=== PATIENT | male | born 1970 | race African-American/Black ===

== ENCOUNTER 2020-07-27 09:46 | Emergency (ER) | payer OTHER, SELFPAY ==
--- NOTE | ~2020-07-27 | XR_ITS ---
XR ankle RT min 3V 07/27/2020 11:30 INDICATION: Right ankle pain after twisting injury PROCEDURE: 4 views right ankle COMPARISON: No prior studies for comparison. FINDINGS: Fracture, dislocation or subluxation is not identified. Ankle mortise intact. The soft tiss ues appear within normal limits. No foreign bodies are identified. IMPRESSION: 1: NO ACUTE BONE OR JOINT ABNORMALITY IDENTIFIED. Reviewed, dictated and finalized at location A.
[2020-07-27 10:31] VITALS: BP 149/86; PULSE 72; RESP 16; TEMP 36.2; O2SAT 97
--- NOTE | 2020-07-27 11:03 | ED.GENADULT ---
HPI - General Adult General Chief complaint: Extremity Injury, Lower Stated complaint: Right ankle Pain Time Seen by Provider: 07/27/20 11:03 Source: patient and RN notes reviewed Mode of arrival: ambulatory Limitations: no limitations History of Present Illness HPI narrative: 49-year-old -[place] male presents with complains of tenderness to right ankle for 1 day. Bari reports twisting right ankle on 07/27/2019 at approximately 19:40 with increasing pain throughout the night. Ibuprofen 400 mg last 07:00 AM without relief. No radiating pain. No numbness or tingling or loss of mobility. Denies inability to bear weight. Exacerbation factor consist of movement and bearing weight. No relieving factors. Denies discoloration. Denies altered sensation and suspected foreign body. Denies fever. Remains active. The patient reports he have not been diagnosed with COVID-19. The patient reports he received COVID-19 vaccine June 2020. The patient reports he is not waiting for the results of a COVID-19 lab test. The patient reports he do not have chills, weakness, or fatigue. The patient reports he do not have a new or worsening cough or shortness of breath. Denies chest pain. The patient reports he do not have any rhinorrhea, congestion, loss of taste or smell, sore throat, nausea, vomiting, abdominal pain, and diarrhea. Tolerating po intake well. Denies recent traveling. Denies concerns for COVID-19 or exposures been home with limited outdoor exposure except for essential household needs, work, and return home. At this time, patient is not suspected of having COVID-19. Some parts of this dictation were generated by voice recognition software and may contain typographical and/or grammatical inaccuracies. Related Data Home Medications Medication Instructions Recorded Confirmed atorvastatin 04/09/19 cyclobenzaprine mg 04/09/19 insulin aspart U-100 [Novolog 100 unit SUBCUT DAILY 04/09/19 07/27/20 Flexpen U-100 Insulin] insulin syringe-needle U-100 [BD 04/09/19 04/09/19 Insulin Syringe Ultra-Fine] losartan 100 mg PO DAILY 04/09/19 07/27/20 tramadol mg 04/09/19 tadalafil 20 mg PO PRN 07/27/20 07/27/20 Allergies Allergy/AdvReac Type Severity Reaction Status Date / Time No Known Allergies Allergy Verified 04/09/19 10:54 Review of Systems Review of Systems: Narrative: CONSTITUTIONAL: Denies fever, chills, sweats. EYES: Denies visual changes, redness, discharge. ENT: Denies rhinorrhea, congestion, sore throat, otalgia. CARDIOVASCULAR: Denies chest pain, palpitations, edema. RESPIRATORY: Denies dyspnea, wheezing, cough. GASTROINTESTINAL: Denies abdominal pain, nausea, vomiting, diarrhea. SKIN: Denies rash or itching. MUSCULOSKELETAL: Denies acute back pain or myalgia. Complains of RT ankle pain. NEUROLOGIC: Denies numbness or focal weakness. PSYCHIATRIC: Denies anxiety or depression. All other systems reviewed & are unremarkable except as noted in HPI and below. [facility] Past Medical History Medical History (Updated 07/30/20 @ 23:36 by BETZY Griffiths) Chronic back pain Diabetes Hypercholesteremia Hypertension Surgical History Surgical History (Updated 07/27/20 @ 11:16 by BETZY Griffiths) No significant past surgical history Family History Family History (Updated 07/27/20 @ 11:17 by BETZY Griffiths) Father Heart disease Mother Heart disease Social History Social History (Updated 07/27/20 @ 11:18 by BETZY Griffiths) Smoking status: Current every day smoker Tobacco type: e-cigarettes/vaping Second hand tobacco smoke exposure: No Alcohol intake: former Alcohol use details: Quit 2 to 3 years ago Substance use: current Substance use type: marijuana Living arrangements: with family Occupation/Education: occupation Gender identity (if verbalized by the patient): Male Comments At time of signature, agree with nu
[2020-07-27] MEDS: KETOROLAC (*BKC) 60 MG/2 ML VIAL IM (11:16)
== END 2020-07-27 11:46 | disposition home or self-care (01) ==
PROVIDERS: Emergency Provider Nurse Practitioner Family
DX: S93.401A Sprain of unspecified ligament of right ankle, initial encounter (principal); X50.9XXA Other and unspecified overexertion or strenuous movements or postures, initial encounter; F17.200 Nicotine dependence, unspecified, uncomplicated; E11.9 Type 2 diabetes mellitus without complications; E78.00 Pure hypercholesterolemia, unspecified; I10 Essential (primary) hypertension
CPT/HCPCS: 73610; 96372; 99213; G0463; J1885

== ENCOUNTER 2020-09-28 15:36 | Emergency (ER) | payer OTHER, SELFPAY ==
[2020-09-28 15:42] VITALS: BP 130/85; PULSE 98; RESP 16; TEMP 36.3; O2SAT 99
--- NOTE | 2020-09-28 15:53 | ED.BACK ---
HPI - Back Pain/Injury General Chief Complaint: Back Pain/Injury Stated Complaint: neck/back pain Time Seen by Provider: 09/28/20 15:58 Source: patient Mode of arrival: ambulatory Limitations: no limitations History of Present Illness HPI Narrative: Bari Liu is a 49 yo male with a OMH of high cholesterol, HTN, diabetes, who comes to urgent care with complaints of neck tightness on the left and lower lumbar pain which radiates down his left buttocks. He mops and picks up at work and is having pain to the point is very difficult for him to move through full range of motion Patient has not seen his doctor [id number] since before the pandemic and will need to have his cholesterol checked; his blood sugar is running in the 180s Related Data Home Medications Medication Instructions Recorded Confirmed insulin aspart U-100 [Novolog 20 unit SUBCUT DAILY 04/09/19 09/28/20 Flexpen U-100 Insulin] insulin syringe-needle U-100 [BD 04/09/19 04/09/19 Insulin Syringe Ultra-Fine] losartan 50 mg PO DAILY 04/09/19 09/28/20 insulin glargine [Lantus Solostar 40 unit SUBCUT DAILY 09/28/20 09/28/20 U-100 Insulin] Allergies Allergy/AdvReac Type Severity Reaction Status Date / Time No Known Allergies Allergy Verified 09/28/20 15:56 Review of Systems Review of Systems: Narrative: CONSTITUTIONAL: Denies fever, chills, sweats. EYES: Denies visual changes, redness, discharge. ENT: Denies rhinorrhea, congestion, sore throat, otalgia. CARDIOVASCULAR: Denies chest pain, palpitations, edema. RESPIRATORY: Denies dyspnea, wheezing, cough GASTROINTESTINAL: Denies abdominal pain, nausea, vomiting, diarrhea. GENITOURINARY: Denies dysuria, hematuria, abnormal discharge SKIN: Denies rash or itching. NEUROLOGIC: Denies numbness, or focal weakness. PSYCHIATRIC: Denies anxiety or depression. Stiffness to the left side of neck and lumbar pain that radiates into the left buttock PMFSH Past Medical History Medical History Chronic back pain Diabetes Hypercholesteremia Hypertension Surgical History Surgical History No significant past surgical history Family History Family History Father Heart disease Mother Heart disease Social History Social History Smoking status: Current every day smoker Tobacco type: e-cigarettes/vaping Second hand tobacco smoke exposure: No Alcohol intake: former Substance use: current Substance use type: marijuana Gender identity (if verbalized by the patient): Male Comments At time of signature, I agree with nursing past medical, surgical, social and family history. There is no relevant family history pertinent to the presenting complaint. Exam Narrative: Exam Narrative: GENERAL: This is a well-nourished, well-developed patient, in moderate distress. HEAD: normocephalic, atraumatic. EYES:Sclera clear/white. Vision is grossly intact. EARS: External ears normal. Hearing grossly intact. NOSE: External nose normal without nasal discharge, nares without redness, no rhinorrhea. THROAT: Mucous membranes moist, NECK: Neck supple, tender with movement up or down and to the right more than the left, tightness felt at base of left neck across trapezius CARDIOVASCULAR: Regular rate and rhythm without murmurs, gallops, or rubs. RESPIRATORY: Clear to auscultation. Breath sounds equal bilaterally. No wheezes, rales, or rhonchi. GASTROINTESTINAL: Abdomen soft, non-tender, SKIN: warm, intact with no suspicious lesions or rash, good texture and turgor. NEURO: awake, alert, and oriented to person, place and time. There were no obvious focal neurologic abnormalities. Steady gait EXTREMITIES: Normal range of motion. Is able to stand on each foot and bend over with d
== END 2020-09-28 16:24 | disposition home or self-care (01) ==
PROVIDERS: Emergency Provider Nurse Practitioner
DX: M54.2 Cervicalgia (principal); M54.32 Sciatica, left side; E78.00 Pure hypercholesterolemia, unspecified; I10 Essential (primary) hypertension; E11.9 Type 2 diabetes mellitus without complications; F17.200 Nicotine dependence, unspecified, uncomplicated
CPT/HCPCS: 99213; G0463

== ENCOUNTER 2020-11-16 09:08 | Emergency (ER) | payer OTHER, SELFPAY ==
[2020-11-16 09:16] VITALS: BP 149/90; PULSE 90; RESP 16; TEMP 36.1; O2SAT 99
--- NOTE | 2020-11-16 09:33 | ED.HA ---
HPI - Headache General Chief Complaint: Headache Stated Complaint: Headache,Shoulder Pain Time Seen by Provider: 11/16/20 09:30 Source: patient Mode of arrival: ambulatory Limitations: no limitations History of Present Illness HPI Narrative: Bari Liu is a 50 yo male with a PMH hypertension, diabetes, high cholesterol, [facility] with complaints of a headache on the right side of his head and shoulder pain and numbness since last night. He has been taking his blood pressure medication on and off and does not have a monitor his blood pressure. His diabetes is fairly well controlled and his blood sugar last night was 158; he has medications for all of the above Related Data Home Medications Medication Instructions Recorded Confirmed insulin aspart U-100 [Novolog 20 unit SUBCUT DAILY 04/09/19 11/16/20 Flexpen U-100 Insulin] insulin syringe-needle U-100 [BD 04/09/19 04/09/19 Insulin Syringe Ultra-Fine] losartan 50 mg PO DAILY 04/09/19 09/28/20 insulin glargine [Lantus Solostar 40 unit SUBCUT DAILY 09/28/20 09/28/20 U-100 Insulin] atorvastatin 40 mg PO DAILY 11/16/20 11/16/20 nicotine 1 patch TRANSDERMAL DAILY 11/16/20 11/16/20 tadalafil 5 mg PO DAILY PRN 11/16/20 11/16/20 Allergies Allergy/AdvReac Type Severity Reaction Status Date / Time No Known Allergies Allergy Verified 11/16/20 09:23 Review of Systems Review of Systems: Narrative: CONSTITUTIONAL: Denies fever, chills, sweats. EYES: Denies visual changes, redness, discharge. ENT: Denies rhinorrhea, congestion, sore throat, otalgia. CARDIOVASCULAR: Denies chest pain, palpitations, edema. RESPIRATORY: Denies dyspnea, wheezing, cough GASTROINTESTINAL: Denies abdominal pain, nausea, vomiting, diarrhea. GENITOURINARY: Denies dysuria, hematuria, abnormal discharge SKIN: Denies rash or itching. NEUROLOGIC: Denies numbness, or focal weakness. Complaining of headache and numbness of right arm PSYCHIATRIC: Denies anxiety or depression. [facility] Past Medical History Medical History Chronic back pain Diabetes Hypercholesteremia Hypertension Surgical History Surgical History No significant past surgical history Family History Family History Father Heart disease Mother Heart disease Social History Social History Smoking status: Current every day smoker Tobacco type: e-cigarettes/vaping Second hand tobacco smoke exposure: No Alcohol intake: former Alcohol use details: Quit 2 to 3 years ago Substance use: current Substance use type: marijuana Gender identity (if verbalized by the patient): Male Comments At time of signature, I agree with nursing past medical, surgical, social and family history. There is no relevant family history pertinent to the presenting complaint. Exam Narrative: Exam Narrative: GENERAL: This is a well-nourished, well-developed patient, in moderate distress. HEAD: normocephalic, atraumatic. EYES: PERRL. Sclera clear/white. Vision is grossly intact. EARS: External ears normal, auditory canals clear and without drainage, TMs normal without perforation. Hearing grossly intact. NOSE: External nose normal without nasal discharge, nares without redness, no rhinorrhea. THROAT: Mucous membranes moist, posterior pharynx erythema NECK: Neck supple, mild-tender on R CARDIOVASCULAR: Regular rate and rhythm without murmurs, gallops, or rubs. RESPIRATORY: Clear to auscultation. Breath sounds equal bilaterally. No wheezes, rales, or rhonchi. GASTROINTESTINAL: Abdomen soft, SKIN: warm, intact with no suspicious lesions or rash, good texture and turgor. NEURO: awake, alert, and oriented to person, place and time. There were no obvious focal neurologic abnormalities. John
--- NOTE | 2020-11-16 09:55 | ECG_ITS ---
Measurements Intervals [place] Rate: 81 P: 61 WI: 137 QRS: 11 QRSD: 81 T: 18 QT: 346 QTc: 402 Interpretive Statements SINUS RHYTHM BASELINE ARTIFACT- I, III, AVR, AVL, AVF NORMAL ECG Electronically Signed On 11-16-2020 12:00:07 CDT by Jori Valentin D.O.
[2020-11-16] MEDS: KETOROLAC (*BKC) 60 MG/2 ML VIAL IM (10:00)
[2020-11-16] MEDS: cloNIDine HCL 0.1 MG TABLET PO (10:15)
[2020-11-16 10:18] VITALS: BP 142/92; PULSE 52
== END 2020-11-16 10:18 | disposition home or self-care (01) ==
PROVIDERS: Emergency Provider Nurse Practitioner
DX: M79.601 Pain in right arm (principal); F17.200 Nicotine dependence, unspecified, uncomplicated; E11.9 Type 2 diabetes mellitus without complications; E78.00 Pure hypercholesterolemia, unspecified; I10 Essential (primary) hypertension
CPT/HCPCS: 93005; 96372; 99213; A9270; G0463; J1885

== ENCOUNTER 2021-01-04 08:26 | Emergency (ER) | payer OTHER, SELFPAY ==
[2021-01-04 08:35] VITALS: BP 154/99; PULSE 84; RESP 16; TEMP 36.6; O2SAT 99
[2021-01-04 08:37] VITALS: BP 154/99; PULSE 84; RESP 16; TEMP 36.6; O2SAT 99
[2021-01-04] MEDS: cloNIDine HCL 0.1 MG TABLET PO (08:51)
--- NOTE | 2021-01-04 08:57 | ED.LOWEXIN ---
HPI - Extremity Injury (Lower) General Chief Complaint: Extremity Injury, Lower Stated Complaint: left foot/thigh Source: patient and RN notes reviewed Mode of arrival: ambulatory History of Present Illness HPI Narrative: This is a 50-year-old male who presented to urgent care with complaints of left ankle and thigh pain status post fall. According to patient he was walking down the stairs at his apartment building and slipped on a child's toy and landed on his left side injuring his left thigh and ankle. Patient notes that he is able to move affected extremity with slight discomfort. 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 Patient noted that he took ibuprofen at home for his pain he also has other pain medications for his chronic back pain. He does not feel that he fractured his foot and has declined imaging of the affected extremity. The patient denies SOB, CP, palpitation, extremity numbness, lightheadedness, dizziness, constipation, diarrhea, chills, or fever. MD complaint: thigh injury (Left), ankle injury (Left) and fall Related Data Home Medications Medication Instructions Recorded Confirmed insulin aspart U-100 [Novolog 20 unit SUBCUT DAILY 04/09/19 11/16/20 Flexpen U-100 Insulin] insulin syringe-needle U-100 [BD 04/09/19 04/09/19 Insulin Syringe Ultra-Fine] losartan 50 mg PO DAILY 04/09/19 01/04/21 insulin glargine [Lantus Solostar 40 unit SUBCUT DAILY 09/28/20 09/28/20 U-100 Insulin] Allergies Allergy/AdvReac Type Severity Reaction Status Date / Time No Known Allergies Allergy Verified 11/16/20 09:23 Review of Systems Review of Systems: A 14 organ system Review of Systems was performed and pertinent positives included in the HPI, otherwise remaining ROS is negative. [facility] Past Medical History Medical History Chronic back pain Diabetes Hypercholesteremia Hypertension Surgical History Surgical History No significant past surgical history Family History Family History Father Heart disease Mother Heart disease Social History Social History Smoking status: Current every day smoker Tobacco type: e-cigarettes/vaping Second hand tobacco smoke exposure: No Alcohol intake: former Alcohol use details: Quit 2 to 3 years ago Substance use: current Substance use type: marijuana Gender identity (if verbalized by the patient): Male Exam Narrative: GENERAL: This is a well-nourished, well-developed patient, in no apparent distress. HEAD: normocephalic, atraumatic. EYES: PERRL. Sclera clear/white. Vision is grossly intact. EARS: External ears normal, auditory canals clear and without drainage, TMs normal without perforation. Hearing grossly intact. NOSE: External nose normal with no obvious nasal discharge, nares without redness, no rhinorrhea. THROAT: Mucous membranes moist, posterior pharynx clear. NECK: Neck supple, non-tender without lymphadenopathy, masses or thyromegaly. CARDIOVASCULAR: Regular rate and rhythm without murmurs, gallops, or rubs. RESPIRATORY: Clear to auscultation. Breath sounds equal bilaterally. No wheezes, rales, or rhonchi. GASTROINTESTINAL: Abdomen soft, non-tender, nondistended. Bowel sounds are active. No hepato-splenomegaly, or palpable masses. No guarding. SKIN: warm, intact with no suspicious lesions or rash, good texture and turgor. NEURO: awake, alert, and oriented to person, place and time. There were no obvious focal neurologic abnormalities. Steady gait EXTREMITIES: Normal range of motion, tenderness to left ankle no edema No calf tenderness. Negative Homans sign bilaterally. No neurovascular deficiency noted pulses are palpable. Capi
== END 2021-01-04 09:03 | disposition home or self-care (01) ==
PROVIDERS: Emergency Provider Nurse Practitioner
DX: S93.402A Sprain of unspecified ligament of left ankle, initial encounter (principal); W10.9XXA Fall (on) (from) unspecified stairs and steps, initial encounter; F17.210 Nicotine dependence, cigarettes, uncomplicated; E11.9 Type 2 diabetes mellitus without complications; E78.00 Pure hypercholesterolemia, unspecified; I10 Essential (primary) hypertension; Z79.4 Long term (current) use of insulin
CPT/HCPCS: 99213; A9270; G0463

== ENCOUNTER 2023-10-09 20:16 | Emergency (ER) | payer OTHER, SELFPAY ==
--- NOTE | ~2023-10-09 | XR_ITS ---
XR hand RT min 3V Ordering provider: Justine Cunha MD History: . injury TO DORSAL MID HAND . Comparison: None. FINDINGS: BONES: Fracture at the base of the distal phalanx of the right thumb anteriorly. No other fractures. JOINT SPACES: Normal. SOFT TISSUES: Normal. IMPRESSION: Fracture at the base of the distal phalanx of the right thumb anteriorly. Clinical correlation advise d. Reviewed, dictated and finalized at location A. IMPRESSION: Fracture at the base of the distal phalanx of the right thumb anteriorly. Clini cain correlation advised.
[2023-10-09 20:18] VITALS: BP 217/104; PULSE 113; RESP 18; TEMP 36.2; O2SAT 99
[2023-10-09 21:26] VITALS: BP 169/83; PULSE 88; RESP 15; O2SAT 99
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
== END 2023-10-09 21:55 | disposition home or self-care (01) ==
PROVIDERS: Emergency Provider Physician Assistant
DX: S60.221A Contusion of right hand, initial encounter (principal); E11.9 Type 2 diabetes mellitus without complications; E78.00 Pure hypercholesterolemia, unspecified; I10 Essential (primary) hypertension; F17.200 Nicotine dependence, unspecified, uncomplicated; Z79.4 Long term (current) use of insulin; Y00.XXXA Assault by blunt object, initial encounter
CPT/HCPCS: 73130; 99283